=== PATIENT | female | born 1970 | race African-American/Black ===

== ENCOUNTER 2019-02-09 13:10 | Emergency (ER) | payer SELFPAY ==
--- NOTE | 2019-02-09 13:38 | RAD ---
FOUR VIEWS OF THE LEFT KNEE: DATE: 02/09/2019. COMPARISON: None. HISTORY: Knee pain. FINDINGS: No displaced fracture or evidence of dislocation is noted. There is a moderate-sized knee joint effu franco. There is enthesophyte formation at the insertion of the quadriceps tendon. IMPRESSION: Nonspecific knee joint effusion with no displaced fracture or evidence of dislocation seen. POS: OFF
[2019-02-09] MEDS ORDERED: Ketorolac Tromethamine 60 MG/2 ML VIAL ONE (14:02)
== END 2019-02-09 14:21 | disposition home or self-care (01) ==
LOC: ERS 13:10
DX: L03.115 Cellulitis of right lower limb (principal); M25.462 Effusion, left knee; G47.30 Sleep apnea, unspecified; I10 Essential (primary) hypertension; J45.909 Unspecified asthma, uncomplicated; E78.00 Pure hypercholesterolemia, unspecified; E03.9 Hypothyroidism, unspecified; F17.210 Nicotine dependence, cigarettes, uncomplicated; Z79.899 Other long term (current) drug therapy; Z79.51 Long term (current) use of inhaled steroids
CPT/HCPCS: 96372; J1885

== ENCOUNTER 2019-02-11 20:32 | Emergency (ER) | payer SELFPAY ==
[2019-02-11 22:36] LABS: #Eosinphils 0.2 thou/uL (0.0-0.7); #Lymphocytes 2.8 thou/uL (1.20-3.40); #Monocytes 0.5 thou/uL (0.11-0.59); #Neutrophils 4.3 thou/uL (1.40-6.50); %Basophils 0.5 % (0.0-1.0); %Eosinophils 2.9 % (0.0-10.0); %Monocytes 6.1 % (0.0-10.0); %Neutrophils 54.5 % (42.0-75.0); Hemoglobin 10.7 g/dL (12.0-16.0); Mean Corpuscular HGB CONC 32.6 g/dL (32.0-36.0); Mean Corpuscular Hemoglobin 26.8 pg (27.0-31.0); Mean Platelet Volume 9.8 fL (7.4-10.4); Platelet Count 243 thou/uL (130-400); RBC Distribution Width 17.4 % (11.5-14.5); White Blood Cell (WBC) Count 7.8 thou/uL (4.8-10.8)
[2019-02-11 22:53] LABS: ALT (SGPT) 14 U/L (8-55); AST (SGOT) 18 U/L (5-34); Albumin 3.9 g/dL (3.5-5.0); Alkaline Phosphatase 105 U/L (40-150); Anion Gap 12 mmol/L (10-20); BUN (Urea Nitrogen) 11 mg/dL (7.0-18.7); Bilirubin, Total Less than 0.2 mg/dL (0.2-1.2); Calc. Creatinine Clearance 0 mL/min (70-130); Calcium 9.4 mg/dL (7.8-10.44); Carbon Dioxide 25 mmol/L (22-29); Chloride 107 mmol/L (98-107); Estimated GFR-MDRD 82; Globulin 3.4 g/dL (2.4-3.5); Glucose 79 mg/dL (70-105); Potassium 3.6 mmol/L (3.5-5.1); Protein, Total 7.3 g/dL (6.0-8.3); Sodium 140 mmol/L (136-145)
== END 2019-02-12 01:44 | disposition home or self-care (01) ==
LOC: ERS 20:32
DX: L03.115 Cellulitis of right lower limb (principal); G47.00 Insomnia, unspecified; I10 Essential (primary) hypertension; J45.909 Unspecified asthma, uncomplicated; E78.00 Pure hypercholesterolemia, unspecified; E03.9 Hypothyroidism, unspecified; F17.210 Nicotine dependence, cigarettes, uncomplicated; Z79.899 Other long term (current) drug therapy
CPT/HCPCS: 36415; 80053; 83605; 84145; 85025; 99283

== ENCOUNTER 2019-06-15 14:07 | Emergency (ER) | payer SELFPAY ==
[2019-06-15] MEDS ORDERED: predniSONE 20 MG TAB ONE (15:31)
[2019-06-15 15:59] LABS: #Basophils 0.1 thou/uL (0.0-0.2); #Eosinphils 0.1 thou/uL (0.0-0.7); #Lymphocytes 2.1 thou/uL (1.20-3.40); #Monocytes 0.3 thou/uL (0.11-0.59); #Neutrophils 3.4 thou/uL (1.40-6.50); %Basophils 1.5 % (0.0-1.0); %Eosinophils 1.6 % (0.0-10.0); %Lymphocytes 34.8 % (21.0-51.0); %Monocytes 4.4 % (0.0-10.0); %Neutrophils 57.7 % (42.0-75.0); Hemoglobin 11.3 g/dL (12.0-16.0); Mean Corpuscular HGB CONC 31.6 g/dL (32.0-36.0); Mean Corpuscular Hemoglobin 26.8 pg (27.0-31.0); Mean Corpuscular Volume 84.7 fL (78.0-98.0); Mean Platelet Volume 11.9 fL (7.4-10.4); Platelet Count 194 thou/uL (130-400); RBC Distribution Width 20.8 % (11.5-14.5); Red Blood Cell (RBC) Count 4.22 mill/uL (4.20-5.40); White Blood Cell (WBC) Count 5.9 thou/uL (4.8-10.8)
--- NOTE | 2019-06-15 16:03 | RAD ---
Chest one view HISTORY: Dyspnea. COMPARISON: 01/15/2015. FINDINGS: Cardiac silhouette is magnified and upper limits of normal in size. Pulmonary vasculature a lso upper limits of normal. Patient rotated rightward. No lobar consolidation or evidence of pneumothorax. Degenerative changes of the shoulders. machinist outside leads overlie the chest. IMPRESSION: No active cardiopulmonary abnormalities are demonstrated.
[2019-06-15] MEDS ORDERED: Iopamidol-370 76% 500 ML 1 ML ONE (16:05)
[2019-06-15 16:21] LABS: CK (CPK) 2987 U/L (29-168); Lipase 18 U/L (8-78)
--- NOTE | 2019-06-15 19:19 | CT ---
CT ANGIOGRAM THORAX WITH IV CONTRAST AND 3D RECONSTRUCTIONS: HISTORY: Elevated D-dimer. The patient complains of shortness of breath and cough for one month. COMPARISON: 01/15/2015 FINDINGS: No filling defects are seen in the pulmonary arteries to suggest a pulmonary embolus. The thoracic aorta is normal in caliber and there is no evidence of an aortic dissection. The heart is mildly enlarged. There are scattered areas of atelectasis within the lungs bilaterally. This exam is obtained in the e xpiratory phase of imaging. No pleural effusion or consolidation is seen. There is no evidence of lymphadenopathy. A 2.3 cm hypodense lesion is seen in the posterior segment right hepatic lobe. This was probably also present on the prior exam but this is not well evaluated on either study due to phase of enhancement . A follow-up non-emergent CT abdomen is recommended for further evaluation. IMPRESSION: 1. Hypodense lesion, right hepatic lobe. A follow-up CT abdomen is recommended for further characteri zation. 2. No CT evidence of a pulmonary embolus. 3. Cardiomegaly and the heart is larger in size compared to the study in 2015. POS: [facility]
== END 2019-06-15 20:00 | disposition home or self-care (01) ==
LOC: ERS 14:07
DX: J45.901 Unspecified asthma with (acute) exacerbation (principal); R73.03 Prediabetes; F17.210 Nicotine dependence, cigarettes, uncomplicated; E03.9 Hypothyroidism, unspecified; I10 Essential (primary) hypertension; E78.00 Pure hypercholesterolemia, unspecified; G47.30 Sleep apnea, unspecified; Z79.899 Other long term (current) drug therapy; Z79.84 Long term (current) use of oral hypoglycemic drugs
CPT/HCPCS: 36415; 71045; 71275; 82550; 83690; 83880; 84484; 85025; 85379; 94640; 96360; 96361; J7512; J7620; Q9967

== ENCOUNTER 2019-06-19 18:32 | Emergency (ER) | payer SELFPAY | END 2019-06-19 19:35 | disposition home or self-care (01) | LOC: ERS 18:32 | DX: R60.0 Localized edema (principal); I10 Essential (primary) hypertension; J45.909 Unspecified asthma, uncomplicated; E78.00 Pure hypercholesterolemia, unspecified; E03.9 Hypothyroidism, unspecified; R73.03 Prediabetes; F17.210 Nicotine dependence, cigarettes, uncomplicated; Z79.51 Long term (current) use of inhaled steroids; Z79.84 Long term (current) use of oral hypoglycemic drugs; Z79.899 Other long term (current) drug therapy | CPT/HCPCS: 99283 ==

== ENCOUNTER 2019-06-19 23:37 | Inpatient (IN) | payer BC, SELFPAY ==
[2019-06-20 00:47] LABS: Hemoglobin 11.4 g/dL (12.0-16.0); Mean Corpuscular HGB CONC 32.8 g/dL (32.0-36.0); Mean Corpuscular Hemoglobin 27.9 pg (27.0-31.0); Mean Corpuscular Volume 84.9 fL (78.0-98.0); Mean Platelet Volume 11.5 fL (7.4-10.4); Platelet Count 191 thou/uL (130-400); RBC Distribution Width 20.7 % (11.5-14.5); Red Blood Cell (RBC) Count 4.08 mill/uL (4.20-5.40); White Blood Cell (WBC) Count 9.1 thou/uL (4.8-10.8)
[2019-06-20 01:07] LABS: Band 1 % (5-11); Hypochromia SLIGHT = 6-15 cells (100X) (0-5/hpf); Lymphocytes 26 % (21-51); MDiff Complete? YES; Monocytes 4 % (0-10); Neutrophil 69 % (42-75); Platelet Morphology Comment Appears Adequate
[2019-06-20 01:09] LABS: ALT (SGPT) 37 U/L (8-55); AST (SGOT) 124 U/L (5-34); Acetaminophen Less than 6.0 mcg/mL (10.0-30.0); Albumin 4.6 g/dL (3.5-5.0); Alcohol Less than 10 mg/dL (Less than 10); Alkaline Phosphatase 83 U/L (40-110); Anion Gap 14 mmol/L (10-20); BUN (Urea Nitrogen) 17 mg/dL (7.0-18.7); Bilirubin, Total 0.4 mg/dL (0.2-1.2); Calc. Creatinine Clearance 0 mL/min (70-130); Calcium 9.9 mg/dL (7.8-10.44); Carbon Dioxide 29 mmol/L (22-29); Chloride 99 mmol/L (98-107); Estimated GFR-MDRD 52; Globulin 3.8 g/dL (2.4-3.5); Glucose 100 mg/dL (70-105); Potassium 3.6 mmol/L (3.5-5.1); Protein, Total 8.4 g/dL (6.0-8.3); Salicylate Less than 8.0 mg/dL (15.0-30.0); Sodium 138 mmol/L (136-145)
[2019-06-20] MEDS ORDERED: Ziprasidone 20 MG VIAL ONE (04:37)
[2019-06-20 04:57] LABS: Pregnancy Test - Urine (BHCG) Negative (Negative); Pregu Control Background? CLEAR/WHITE (CLR/WHITE); Pregu Control Bar Appear? YES (CONTROL BAR); Specific Gravity 1.012 (1.002-1.036)
[2019-06-20 05:06] LABS: Amphetamine Not Detected (NotDetected); Barbiturates Screen Not Detected (NotDetected); Benzodiazepine Screen Not Detected (NotDetected); Cocaine Metabolite Screen Not Detected (NotDetected); Medtox Control Line Valid? VALID (VALID); Medtox Reader # READER 4; Methadone Not Detected (NotDetected); Methamphetamine Not Detected (NotDetected); Opiate Screen Not Detected (NotDetected); Oxycodone Screen Not Detected (NotDetected); Phencyclidine (PCP) Not Detected (NotDetected); THC/Cannabinoid Screen Not Detected (NotDetected); Tricyclic Screen Not Detected (NotDetected)
[2019-06-20] MEDS ORDERED: Lorazepam 2 MG/ML VIAL ONE (09:31)
[2019-06-20] MEDS ORDERED: Rocuronium Bromide 10 MG/ML (10ML VIAL) ONE (10:23)
[2019-06-20] MEDS ORDERED: Ketamine 50 MG/ML (10ML VIAL) ONE (10:23)
[2019-06-20] MEDS ORDERED: Propofol 1,000 MG/100 ML VIAL IV ONE ×2 (10:41→14:53)
--- NOTE | 2019-06-20 11:00 | RAD ---
XR Chest 1 View Portable History: Post intubation Comparison: Radiograph December 14, 2019 Findings: Patient is intubated with endotracheal tube tip just below the level of the clavicles. The heart size is mildly enlarged. Lungs are hypoinflated with vascular crowding. Impression: 1. Endotracheal tube tip in good position is below the level of clavicles. 2. Possible enteric tube coiled over the neck. Recommend retraction and re-advancement.
[2019-06-20 11:13] LABS: Actual Bicarbonate (HCO3a) 29.7 mEq/L (22-28); Analyzer IN Cardio ER; Base Excess (BEa) 4.9 mEq/L (-2.0 to +3.0); Calcium, Ionized 1.14 mmol/L (1.12-1.30); Hemoglobin (Hb) 11.5 g/dL (12.0-16.0); O2 Tension (PaO2) 67.2 mmHg (80.0-100.0); pH, Arterial 7.44 (7.35-7.45)
[2019-06-20 11:15] LABS: Puncture Site LRA
[2019-06-20 11:16] LABS: Bilirubin Negative (Negative); Blood, Urine Moderate (Negative); Glucose, Urine (Dipstick) Negative (Negative); Leukocyte Negative (Negative); Nitrite Negative (Negative); Protein, Urine (Dipstick) 30 mg/dL (Neg-Trace); Urobilinogen 0.2 mg/dL (Less than 2)
[2019-06-20 11:17] LABS: Clarity Slightly Cloudy (Clear)
[2019-06-20 11:24] LABS: Bacteria/HPF None Seen HPF (None Seen); RBC/HPF 0-3 HPF (0-3); Squamous Epithelial 0-3 HPF (0-3); WBC/HPF 0-3 HPF (0-3)
--- NOTE | 2019-06-20 12:09 | CT ---
Exam: Head CT without contrast HISTORY: Altered mental status COMPARISON: none FINDINGS: Hemorrhage: No intraparenchymal hemorrhage or extra-axial hematoma. Brain parenchyma: Cortical garcia-white matter differentiation is preserved. No mass effect or midline shift. Basilar cisterns are patent. Ventricular system: Ventricles and sulci are patent and symmetric. Calvarium: Intact. Sinuses and mastoid air cells: Adequate aeration. IMPRESSION: No acute intracranial process.
[2019-06-20] MEDS: Sodium Chloride 0.9% 1,000 ML IV SCH ×2 (13:30→21:21)
[2019-06-20] MEDS ORDERED: cefTRIAXone\\ROCEPHIN 1 GM in Sodium Chloride 0.9% 100 ML IVPB SCH (14:15)
[2019-06-20 14:45] VITALS: BMI 56.2
[2019-06-20] MEDS ORDERED: Levothyroxine 100 MCG SDV IVP SCH (14:45)
[2019-06-20] MEDS: Haloperidol Lactate 5 MG/ML VIAL SLOW IVP PRN (14:57)
[2019-06-20] MEDS: risperiDONE 0.25 MG TAB PO SCH ×2 (14:58→21:21)
[2019-06-20] MEDS: Heparin 5,000 UNITS/ML VIAL SC SCH ×2 (15:11→21:20)
--- NOTE | 2019-06-20 15:19 | CON ---
DATE OF CONSULTATION: HISTORY: This is a 49-year-old morbidly obese female, who was just recently discharged from this institution, presents with major confusion and hallucination. She was very agitated in the ER, thrashing around ER physician, and Dr. Sotelo intubated off to protect her airways. On admission in the ER, blood pressure 192/104, temperature 97, respirations 20, pulse 74, saturations are 95% on room air. She apparently was given Geodon in the ER. We obviously unable to get any history from the patient. She is intubated. No family was present at the bedside. Dr. Roth in the office has seen her 6 years ago for sleep apnea issues. PAST MEDICAL HISTORY: Apparently, asthma, high cholesterol, hypertension, sleep apnea, and hypothyroidism. PREVIOUS SURGERIES: Apparently, and hernia. SOCIAL HISTORY: No alcohol abuse. No drug abuse. Smokes. Lives alone. Half pack a day. RECENT DISCHARGE MEDICATIONS: 1. Synthroid 125. 2. Hydrochlorothiazide 25. 3. Flovent. 4. Lipitor 80. PHYSICAL EXAMINATION: GENERAL: She is still agitated, on Diprivan. VITAL SIGNS: Pulse 73, . CHEST: Bilateral wheezing. CARDIAC: Normal S1 and S2. No gallops. ABDOMEN: No masses. LABORATORY DATA: Otherwise shows white count of 9,000, H and H of 11 and 34, and platelet count is normal. PO2 of 67, . Lytes normal. Creatinine 1.32. TSH is elevated at 25, she is probably not taking her Synthroid. Renal function worsen compared to recently, probably prerenal. Drug screen was negative. CT brain was negative. Chest x-ray, no acute infiltrate is seen. IMPRESSION: 1. Metabolic encephalopathy. 2. Hypothyroidism. 3. Sleep apnea. 4. Asthma. 5. Azotemia. We will try and get additional information from family if possible. In the meantime, IV fluids, sedation, and empiric antibiotics. Start IV Synthroid. Neb treatment and supportive care. This is a 45-minute critical time. We will follow. Job ID: [id number]
[2019-06-20] MEDS ORDERED: Fentanyl BOLUS 250 ML IVPB PRN (15:25)
[2019-06-20] MEDS ORDERED: Lorazepam 2 MG/ML VIAL SLOW IVP PRN (15:25)
[2019-06-20] MEDS ORDERED: Propofol BOLUS 1,000 MG/100 ML VIAL IV PRN (15:25)
[2019-06-20] MEDS ORDERED: fentaNYL Citrate/PF 2,000 MCG in Sodium Chloride 0.9% 60 ML IV SCH (15:25)
[2019-06-20] MEDS ORDERED: DISCONTINUE PREVIOUS NARCOTIC PAIN MEDICATIONS AND BENZODIAZEPINES FS SCH (15:25)
[2019-06-20] MEDS ORDERED: Morphine 2 MG/ML SYRINGE SLOW IVP PRN (15:25)
--- NOTE | 2019-06-20 16:08 | HP ---
HISTORY OF PRESENT ILLNESS: Mrs. Turcios is a 49-year-old black woman. She came to this facility yesterday because of some redness involving her right leg. She was discharged and later she came back because of hallucination. She was having visual hallucination witnessed in the ER. Subsequently, she became very agitated, had to be intubated. There is no family member available at the current time. History is obtained from the nurses and also from her medical record. She is known to have a history of obstructive sleep apnea, asthma, hypertension, morbid obesity. SOCIAL HISTORY: She does have a history of cigarette smoking. No history of substance abuse. ALLERGIES: SHE DOES NOT HAVE ANY KNOWN ALLERGY. SURGICAL HISTORY: Remarkable for and also had hernia repair. FAMILY HISTORY: According to the old chart is remarkable for hypertension, diabetes, and also lupus. MEDICATIONS: Prior to admission, she was on 1. Tylenol with Codeine. 2. Lipitor. 3. Flovent inhaler. 4. Hydrochlorothiazide. 5. Levothyroxine. 6. Metformin. 7. Naproxen. 8. Omeprazole. REVIEW OF SYSTEM: As we mentioned earlier, general confusion. A detailed review of systems cannot be obtained as patient is currently intubated and there is no family member available. PHYSICAL EXAMINATION: GENERAL: At the current time, she is intubated and sedated. VITAL SIGNS: Her latest vital signs show a pulse rate of 72, blood pressure of 125/98, respiratory rate of 16, temperature of 96.1. HEENT: Her head is normocephalic and atraumatic. Both pupils are equal and reactive to light. Ears and nose are normal. She is orally intubated. NECK: Supple. There is no distention of the jugular vein. No lymphadenopathy felt. Thyroid gland not palpable. There is no carotid bruit. CHEST: Symmetrical with regular S1, S2. LUNGS: Some wheezing. ABDOMEN: Soft. Bowel sounds heard. We could not appreciate any organomegaly. EXTREMITIES: Limbs show no edema. NEUROLOGIC: Cannot be performed at this time, patient being sedated. LABORATORY DATA: Her CBC done earlier showed a WBC of 9.1, hemoglobin of 11.4, hematocrit of 34.7, MCV of 89.9, platelet of 191. ABG done earlier on room air shows a pH of 7.44, pCO2 of 45, PO2 of 67, saturation of 92. Chemistry and lytes done earlier, show a sodium of 138, potassium 3.6, chloride 99, CO2 of 29, BUN 17, creatinine 1.32, glucose 100, total bilirubin 0.4, AST 124, ALT 37, alkaline phosphatase is 83, total protein 8.4, albumin 4.6, globulin 3.8, TSH was noticed to be 25.0544. Drug screen is negative. Urinalysis show a pH of 5.5, specific gravity of 1.017, protein 30 mg/dL, moderate blood, nitrite negative, leukocyte esterase is negative, 0-3 RBCs, 0-3 WBCs, 0-[address] was reported to show no acute intracranial process. Chest x-ray done earlier was reviewed and shows possible pneumonia. ASSESSMENT AND PLAN: This is a 49-year-old black woman with history of hypertension, morbid obesity, who came in because of hallucination, confusion, and later became agitated and had to be intubated. According to the family member who was present in the ER, patient does not have any previous history of psychiatric disorder, no previous history of acute confusion. Chest x-ray in our opinion shows some infiltrate. We will start her on broad-spectrum antibiotics. Pulmonary was consulted and we plan to obtain a lumbar tap later when patient is more stable. Her TSH was noticed to be elevated. Levothyroxine was resumed. Critical Care is on board. Further evaluation and management will depend on the course of her hospitalization and her response to therapy. Job ID: [id number]
[2019-06-20] MEDS: Propofol 1,000 MG/100 ML VIAL IV PRN ×3 (17:40→22:55)
[2019-06-20] MEDS: cefTRIAXone\\ROCEPHIN 2 GM in Sodium Chloride 0.9% 100 ML IVPB SCH (18:00)
[2019-06-20] MEDS: methylPREDNISolone Sod Succ 40 MG VIAL IVP SCH (18:00)
[2019-06-21] MEDS: methylPREDNISolone Sod Succ 40 MG VIAL IVP SCH ×5 (01:10→23:59)
[2019-06-21] MEDS: Propofol 1,000 MG/100 ML VIAL IV PRN ×6 (01:27→22:50)
[2019-06-21] MEDS: Sodium Chloride 0.9% 1,000 ML IV SCH (03:50)
[2019-06-21 03:51] LABS: #Lymphocytes 1.7 thou/uL (1.20-3.40); #Monocytes 0.5 thou/uL (0.11-0.59); #Neutrophils 5.3 thou/uL (1.40-6.50); %Basophils 0.2 % (0.0-1.0); %Eosinophils 0.3 % (0.0-10.0); %Lymphocytes 22.2 % (21.0-51.0); %Monocytes 6.2 % (0.0-10.0); %Neutrophils 71.1 % (42.0-75.0); Hemoglobin 12.5 g/dL (12.0-16.0); Mean Corpuscular HGB CONC 33.2 g/dL (32.0-36.0); Mean Corpuscular Hemoglobin 27.9 pg (27.0-31.0); Mean Corpuscular Volume 84.1 fL (78.0-98.0); Mean Platelet Volume 9.8 fL (7.4-10.4); Platelet Count 121 thou/uL (130-400); RBC Distribution Width 20.7 % (11.5-14.5); Red Blood Cell (RBC) Count 4.47 mill/uL (4.20-5.40); White Blood Cell (WBC) Count 7.4 thou/uL (4.8-10.8)
[2019-06-21 04:04] LABS: Anion Gap 19 mmol/L (10-20); BUN (Urea Nitrogen) 12 mg/dL (7.0-18.7); Calc. Creatinine Clearance 152 mL/min (70-130); Carbon Dioxide 20 mmol/L (22-29); Chloride 99 mmol/L (98-107); Estimated GFR-MDRD 60; Glucose 93 mg/dL (70-105); Potassium 3.1 mmol/L (3.5-5.1); Sodium 135 mmol/L (136-145)
[2019-06-21] MEDS ORDERED: Levothyroxine 100 MCG SDV IVP SCH (06:00)
[2019-06-21] MEDS: cefTRIAXone\\ROCEPHIN 2 GM in Sodium Chloride 0.9% 100 ML IVPB SCH ×2 (06:32→17:31)
[2019-06-21 07:54] LABS: Base Excess (BEa) 1.9 mEq/L (-2.0 to +3.0); CO2 Tension 26.2 mmHg (35.0-45.0); Carboxyhemoglobin (COHb) 1.2 gm% (0.0-3.0); Potassium - ABG Lab 2.89 mmol/L (3.70-5.30)
[2019-06-21 07:55] LABS: O2 Tension (PaO2) 50.6 mmHg (80.0-100.0); Puncture Site RRA; pH, Arterial 7.56 (7.35-7.45)
--- NOTE | 2019-06-21 08:36 | RAD ---
XR Chest 1 View Portable History: Ventilated patient Comparison: Radiograph prior day Findings: Endotracheal tube tip at level of clavicles. Enteric tube tip below diaphragm although not well seen. Heart size is enlarged. The right upper lobe consolidation. Small effusions. Mild pulmonary venous congestion. Impression: New consolidation right upper lobe may reflect aspiration or developing infection.
[2019-06-21] MEDS: Heparin 5,000 UNITS/ML VIAL SC SCH (08:38)
[2019-06-21] MEDS: risperiDONE 0.25 MG TAB PO SCH ×2 (08:38→21:33)
[2019-06-21] MEDS: Haloperidol Lactate 5 MG/ML VIAL SLOW IVP PRN ×4 (08:47→22:03)
[2019-06-21 08:50] LABS: Reference Lab Name LABCORP
[2019-06-21 08:51] LABS: Ref Lab Test Ordered SYNT CANNABINOIDS
--- NOTE | 2019-06-21 08:58 | PRG ---
DATE OF SERVICE: 06/21/2019 SUBJECTIVE: Lucia Turcios is a 49-year-old, morbidly obese female, who is intubated, sedated. We are in the process of holding her sedation to see what she is doing neurologically. OBJECTIVE: VITAL SIGNS: Blood pressure 157/113, pulse 80, respiratory rate 18, afebrile, saturations 96%. CHEST: Diffuse wheezing. CARDIAC: Normal S1 and S2. No gallops. ABDOMEN: No masses. LABORATORY DATA: White count 7000, hemoglobin and hematocrit are 12 and 37, and platelet count is normal. PO2 is 50, pCO2 lytes are normal. IMPRESSION: Respiratory failure, chronic obstructive pulmonary disease, asthma, encephalopathy. PLAN: I am concerned about the hypoxemia. She is still on broad-spectrum antibiotics, Haldol, steroids, neb treatment. Cultures are so far negative. Plan is to hold sedation, otherwise continue antibiotics, neb treatments, and start nutrition. She is not weanable at this stage. We will follow. One-half hour critical are time. Job ID: [id number]
[2019-06-21] MEDS: niCARdipine 25 MG in Sodium Chloride 0.9% 250 ML 240 ML IVPB SCH (10:37)
[2019-06-21] MEDS ORDERED: Magnesium 2 GM/50 ML 2 GM in Premix Bag 1 BAG IVPB SCH (11:00)
[2019-06-21] MEDS ORDERED: risperiDONE 0.25 MG TAB PO SCH (11:00)
--- NOTE | 2019-06-21 12:13 | PDOC.HOSPP ---
- Subjective Encounter Date: 06/21/19 Encounter Time: 12:00 Subjective: Intubated, .. - Objective Vital Signs & Weight: Vital Signs (12 hours) Temp Pulse Resp BP Pulse Ox 06/21/19 12:00 98.1 F 15 06/21/19 10:42 71 181/124 H 06/21/19 10:41 75 15 97 06/21/19 10:00 16 06/21/19 08:00 98.3 F 31 H 100 06/21/19 07:17 74 128/98 H 06/21/19 07:06 75 16 97 06/21/19 04:00 98.3 F 06/21/19 02:57 78 06/21/19 01:01 95 Weight Admit Weight 358 lb 11.073 oz Weight 358 lb 11.073 oz Most Recent Monitor Data Heart Rate from ECG 81 NIBP 147/97 NIBP BP-Mean 113 Respiration from ECG 9 SpO2 99 I&O: 06/20/19 06/21/19 06/22/19 06:59 06:59 06:59 Intake Total 3237 90 Output Total 1750 622 Balance 1487 -532 Result Diagrams: 06/21/19 03:34 06/21/19 03:34 Hospitalist ROS - Medication Medications: Active Medications Generic Name Dose Route Start Last Admin Trade Name Freq PRN Reason Stop Dose Admin Albuterol/Ipratropium 3 ml 06/21/19 10:30 06/21/19 10:41 Duoneb NEB 3 ml [id number] CHUN Administration Haloperidol Lactate 5 mg 06/20/19 14:16 06/21/19 08:47 Haldol SLOW IVP 5 mg Q4H PRN Administration Agitation Levofloxacin 750 mg/ Device 150 mls @ 100 mls/hr 06/20/19 15:00 06/20/19 15: 05 IVPB 150 mls Q24HR CHUN Administration Ceftriaxone Sodium 2 gm/ 100 mls @ 0 mls/hr 06/20/19 18:00 06/21/19 06:32 Sodium Chloride IVPB 100 mls 0600,1800 CHUN Administration Nicardipine HCl 25 mg/ Sodium 250 mls @ 0 mls/hr 06/21/19 10:30 06/21/19 10: 37 Chloride IVPB 250 mls INF CHUN Administration Protocol Titrate Magnesium Sulfate 2 gm/ Device 50 mls @ 50 mls/hr 06/21/19 11:00 06/21/19 11: 20 IVPB 06/21/19 13:00 50 mls NOW CHUN Administration Methylprednisolone Sodium Succinate 40 mg 06/20/19 18:00 06/21/19 11:21 Solu-Medrol IVP 40 mg Q6HR CHUN Administration Propofol 1,000 mg 06/20/19 15:25 06/21/19 03:49 Diprivan IV 07/20/19 15:25 1,000 mg INF PRN Administration TO ACHIEVE GOAL RASS Protocol Risperidone 0.25 mg 06/21/19 11:00 06/21/19 11:22 Risperidone PO 06/21/19 13:00 0.25 mg NOW CHUN Administration - Exam Neck: no JVD Heart: RRR Respiratory: CTAB Gastrointestinal: soft Extremities: no edema Neurological: no weakness (Moves all limbs..) Hosp A/P (1) Respiratory failure Code(s): J96.90 - RESPIRATORY FAILURE, UNSP, UNSP W HYPOXIA OR HYPERCAPNIA Status: Acute Plan: With new infiltrate on chest x-ray.. ?aspiration Vs bacterial pneumonia. (2) Asthma Code(s): J45.909 - UNSPECIFIED ASTHMA, UNCOMPLICATED Status: Acute (3) Hypertension Code(s): I10 - ESSENTIAL (PRIMARY) HYPERTENSION Status: Acute Plan: BP was noticed to be elevated, diastolic>110 ?due to decreased sedation. Started on cardene drip. (4) Hypothyroidism Code(s): E03.9 - HYPOTHYROIDISM, UNSPECIFIED Status: Acute Plan: supplemented. (5) Morbid obesity with BMI of 50.0-59.9, adult Code(s): E66.01 - MORBID (SEVERE) OBESITY DUE TO EXCESS CALORIES; Z68.43 - BODY MASS INDEX (BMI) 50.0-59.9, ADULT Status: Acute (6) Obstructive sleep apnea Code(s): G47.33 - OBSTRUCTIVE SLEEP APNEA (ADULT) (PEDIATRIC) Status: Acute (7) Confusion state Code(s): F44.89 - OTHER DISSOCIATIVE AND CONVERSION DISORDERS Status: Acute Plan: Prior to admission.. Drug screen negative. Check for synthetic marijuana.. ? infectious process - Plan Continue broad spectrum antibiotics... On cardene drip. f/u cultures. f/u with pulmonary. May need LP. f/u k2 levels.
--- NOTE | 2019-06-21 12:40 | HP ---
Job ID: [id number]
[2019-06-21] MEDS ORDERED: FLU VACC QS2019-20(6MOS UP)/PF 60 MCG/0.5 ML SYRINGE IM ONE (16:15)
[2019-06-21] MEDS: Enoxaparin Sodium 40 MG/0.4 ML SYRINGE SC SCH (21:32)
[2019-06-22] MEDS: Propofol 1,000 MG/100 ML VIAL IV PRN ×6 (02:45→21:12)
[2019-06-22] MEDS: Haloperidol Lactate 5 MG/ML VIAL SLOW IVP PRN ×3 (03:30→21:11)
[2019-06-22 04:07] LABS: #Lymphocytes 0.6 thou/uL (1.20-3.40); #Monocytes 0.3 thou/uL (0.11-0.59); #Neutrophils 12.4 thou/uL (1.40-6.50); %Eosinophils 0.1 % (0.0-10.0); %Lymphocytes 4.8 % (21.0-51.0); %Monocytes 2.4 % (0.0-10.0); %Neutrophils 92.7 % (42.0-75.0); Mean Corpuscular HGB CONC 32.9 g/dL (32.0-36.0); Mean Corpuscular Hemoglobin 27.9 pg (27.0-31.0); Mean Corpuscular Volume 84.8 fL (78.0-98.0); Mean Platelet Volume 9.6 fL (7.4-10.4); Platelet Count 157 thou/uL (130-400); RBC Distribution Width 20.8 % (11.5-14.5); Red Blood Cell (RBC) Count 4.31 mill/uL (4.20-5.40); White Blood Cell (WBC) Count 13.4 thou/uL (4.8-10.8)
[2019-06-22 04:13] LABS: Anion Gap 13 mmol/L (10-20); BUN (Urea Nitrogen) 12 mg/dL (7.0-18.7); Calc. Creatinine Clearance 136 mL/min (70-130); Calcium 8.8 mg/dL (7.8-10.44); Carbon Dioxide 26 mmol/L (22-29); Chloride 100 mmol/L (98-107); Estimated GFR-MDRD 53; Glucose 115 mg/dL (70-105); Potassium 3.1 mmol/L (3.5-5.1); Sodium 136 mmol/L (136-145)
[2019-06-22] MEDS: cefTRIAXone\\ROCEPHIN 2 GM in Sodium Chloride 0.9% 100 ML IVPB SCH ×2 (05:35→17:40)
[2019-06-22] MEDS: methylPREDNISolone Sod Succ 40 MG VIAL IVP SCH ×3 (05:37→17:52)
[2019-06-22] MEDS: Levothyroxine Sodium 125 MCG TAB PO SCH (05:37)
[2019-06-22 07:31] LABS: Actual Bicarbonate (HCO3a) 26.3 mEq/L (22-28); Base Excess (BEa) 2.1 mEq/L (-2.0 to +3.0); CO2 Tension 39.6 mmHg (35.0-45.0); Calcium, Ionized 1.14 mmol/L (1.12-1.30); Carboxyhemoglobin (COHb) 1.1 gm% (0.0-3.0); Hemoglobin (Hb) 11.7 g/dL (12.0-16.0); O2 Tension (PaO2) 70.4 mmHg (80.0-100.0); pH, Arterial 7.44 (7.35-7.45)
[2019-06-22 07:32] LABS: Puncture Site LR
[2019-06-22] MEDS: Amlodipine 10 MG TAB PO SCH (08:12)
[2019-06-22] MEDS: risperiDONE 0.25 MG TAB PO SCH ×2 (08:13→21:11)
--- NOTE | 2019-06-22 08:35 | RAD ---
PORTABLE SUPINE FRONTAL CHEST RADIOGRAPH: DATE: 06/22/2019. COMPARISON: 06/21/2019. HISTORY: Ventilated patient. FINDINGS: Stable endotracheal tube and nasogastric tube. Stable prominence of the cardiac silhouette with pulm onary vascular congestion. No lobar consolidation or alveolar edema. Mild increased density in the medial left base suggests volume loss or infiltrate. IMPRESSION: No significant interval change. POS: [facility]
--- NOTE | 2019-06-22 09:07 | PDOC.HOSPP ---
- Subjective Encounter Date: 06/22/19 Encounter Time: 09:05 Subjective: intubated, non-responsive - Objective Vital Signs & Weight: Vital Signs (12 hours) Temp Pulse Resp BP 06/22/19 08:12 73 129/103 H 06/22/19 07:56 73 160/116 H 06/22/19 04:00 98.4 F 06/22/19 03:50 76 142/99 H 06/22/19 00:59 76 06/22/19 00:00 98.2 F 06/21/19 22:12 89 166/128 H 06/21/19 22:00 12 Weight Admit Weight 358 lb 11.073 oz Weight 358 lb 11.073 oz Most Recent Monitor Data Heart Rate from ECG 72 NIBP 129/103 NIBP BP-Mean 111 Respiration from ECG 9 SpO2 98 I&O: 06/21/19 06/22/19 06/23/19 06:59 06:59 06:59 Intake Total 3237 2253 Output Total 1750 1877 Balance 1487 376 Result Diagrams: 06/22/19 03:47 06/22/19 03:47 Hospitalist ROS - Medication Medications: Active Medications Generic Name Dose Route Start Last Admin Trade Name Freq PRN Reason Stop Dose Admin Albuterol/Ipratropium 3 ml 06/21/19 10:30 06/22/19 07:54 Duoneb NEB 3 ml [id number] CHUN Administration Amlodipine Besylate 10 mg 06/22/19 09:00 06/22/19 08:12 Norvasc PO 10 mg DAILY CHUN Administration Enoxaparin Sodium 40 mg 06/21/19 21:00 06/21/19 21:32 Lovenox SC 40 mg 2100 CHUN Administration Haloperidol Lactate 5 mg 06/20/19 14:16 06/22/19 03:30 Haldol SLOW IVP 5 mg Q4H PRN Administration Agitation Levofloxacin 750 mg/ Device 150 mls @ 100 mls/hr 06/20/19 15:00 06/21/19 15: 07 IVPB 150 mls Q24HR CHUN Administration Ceftriaxone Sodium 2 gm/ 100 mls @ 0 mls/hr 06/20/19 18:00 06/22/19 05:35 Sodium Chloride IVPB 100 mls 0600,1800 CHUN Administration Vancomycin HCl 2 gm/ Sodium 500 mls @ 200 mls/hr 06/21/19 16:00 06/21/19 16: 14 Chloride IVPB 500 mls 1600 CHUN Administration Nicardipine HCl 25 mg/ Sodium 250 mls @ 0 mls/hr 06/21/19 10:30 06/21/19 10: 37 Chloride IVPB 250 mls INF CHUN Administration Protocol Titrate Levothyroxine Sodium 125 mcg 06/22/19 06:00 06/22/19 05:37 Synthroid PO 125 mcg 0600 CHUN Administration Methylprednisolone Sodium Succinate 40 mg 06/20/19 18:00 06/22/19 05:37 Solu-Medrol IVP 40 mg Q6HR CHUN Administration Propofol 1,000 mg 06/20/19 15:25 06/22/19 06:27 Diprivan IV 07/20/19 15:25 1,000 mg INF PRN Administration TO ACHIEVE GOAL RASS Protocol Risperidone 0.25 mg 06/21/19 21:00 06/22/19 08:13 Risperidone PO 0.25 mg BID CHUN Administration - Exam Neck: no JVD Neck - other findings: stiff Heart: RRR, no murmur Respiratory: CTAB Gastrointestinal: soft, non-tender, normal bowel sounds Extremities: 1+ LE edema Hosp A/P (1) Encephalopathy acute Code(s): G93.40 - ENCEPHALOPATHY, UNSPECIFIED Status: Acute (2) Acute respiratory failure with hypoxia Code(s): J96.01 - ACUTE RESPIRATORY FAILURE WITH HYPOXIA Status: Acute (3) Hypertensive urgency Code(s): I16.0 - HYPERTENSIVE URGENCY Status: Acute (4) Meningitis Code(s): G03.9 - MENINGITIS, UNSPECIFIED Status: Acute (5) Hyperlipidemia Code(s): E78.5 - HYPERLIPIDEMIA, UNSPECIFIED Status: Chronic Qualifiers: Hyperlipidemia type: unspecified Qualified Code(s): E78.5 - Hyperlipidemia , unspecified (6) Morbid obesity with BMI of 50.0-59.9, adult Code(s): E66.01 - MORBID (SEVERE) OBESITY DUE TO EXCESS CALORIES; Z68.43 - BODY MASS INDEX (BMI) 50.0-59.9, ADULT Status: Chronic (7) Obstructive sleep apnea Code(s): G47.33 - OBSTRUCTIVE SLEEP APNEA (ADULT) (PEDIATRIC) Status: Chronic - Plan cadene iv for BP control LP for cells, C&S pending vent dependent cont iv antibx
[2019-06-22] MEDS: cloNIDine 0.1 MG TAB PO PRN (09:33)
[2019-06-22] MEDS: niCARdipine 25 MG in Sodium Chloride 0.9% 250 ML 240 ML IVPB SCH ×2 (11:50→17:40)
[2019-06-22 15:44] LABS: Vancomycin, Trough 9.6 ug/mL
[2019-06-22] MEDS: Vancomycin 1.5 GRAM/300 ML BAG 1.5 GM in Premix Bag 1 BAG IVPB SCH (16:12)
[2019-06-22] MEDS ORDERED: Potassium Chloride 40 MEQ in Sodium Chloride 0.9% 250 ML 250 ML IVPB SCH (16:45)
[2019-06-22] MEDS: Pantoprazole 40 MG VIAL IVP SCH (21:11)
[2019-06-22] MEDS: Enoxaparin Sodium 40 MG/0.4 ML SYRINGE SC SCH (21:11)
[2019-06-23] MEDS: Propofol 1,000 MG/100 ML VIAL IV PRN ×8 (00:20→22:03)
[2019-06-23] MEDS: methylPREDNISolone Sod Succ 40 MG VIAL IVP SCH ×4 (00:33→17:18)
[2019-06-23] MEDS: Haloperidol Lactate 5 MG/ML VIAL SLOW IVP PRN ×4 (03:22→21:10)
[2019-06-23 04:25] LABS: #Basophils 0.1 thou/uL (0.0-0.2); #Lymphocytes 0.7 thou/uL (1.20-3.40); #Monocytes 0.4 thou/uL (0.11-0.59); #Neutrophils 10.7 thou/uL (1.40-6.50); %Basophils 0.4 % (0.0-1.0); %Eosinophils 0.1 % (0.0-10.0); %Lymphocytes 5.8 % (21.0-51.0); %Monocytes 3.4 % (0.0-10.0); %Neutrophils 90.2 % (42.0-75.0); Hemoglobin 12.1 g/dL (12.0-16.0); Mean Corpuscular HGB CONC 31.5 g/dL (32.0-36.0); Mean Corpuscular Hemoglobin 27.4 pg (27.0-31.0); Mean Platelet Volume 10.8 fL (7.4-10.4); Platelet Count 162 thou/uL (130-400); RBC Distribution Width 21.6 % (11.5-14.5); Red Blood Cell (RBC) Count 4.43 mill/uL (4.20-5.40); White Blood Cell (WBC) Count 11.9 thou/uL (4.8-10.8)
[2019-06-23] MEDS: Vancomycin 1.5 GRAM/300 ML BAG 1.5 GM in Premix Bag 1 BAG IVPB SCH ×2 (04:25→15:16)
[2019-06-23 04:38] LABS: Anion Gap 16 mmol/L (10-20); BUN (Urea Nitrogen) 12 mg/dL (7.0-18.7); Calc. Creatinine Clearance 175 mL/min (70-130); Calcium 8.9 mg/dL (7.8-10.44); Carbon Dioxide 23 mmol/L (22-29); Chloride 103 mmol/L (98-107); Estimated GFR-MDRD 71; Glucose 125 mg/dL (70-105); Potassium 3.7 mmol/L (3.5-5.1); Sodium 138 mmol/L (136-145)
[2019-06-23] MEDS: Levothyroxine Sodium 125 MCG TAB PO SCH (05:51)
[2019-06-23] MEDS: cefTRIAXone\\ROCEPHIN 2 GM in Sodium Chloride 0.9% 100 ML IVPB SCH ×2 (05:51→17:17)
[2019-06-23] MEDS: niCARdipine 25 MG in Sodium Chloride 0.9% 250 ML 240 ML IVPB SCH (07:08)
[2019-06-23 07:21] LABS: Actual Bicarbonate (HCO3a) 29.6 mEq/L (22-28); Base Excess (BEa) 5.3 mEq/L (-2.0 to +3.0); CO2 Tension 42.6 mmHg (35.0-45.0); Calcium, Ionized 1.16 mmol/L (1.12-1.30); Carboxyhemoglobin (COHb) 0.9 gm% (0.0-3.0); Hemoglobin (Hb) 11.7 g/dL (12.0-16.0); O2 Tension (PaO2) 60.9 mmHg (80.0-100.0); Potassium - ABG Lab 3.19 mmol/L (3.70-5.30); pH, Arterial 7.46 (7.35-7.45)
[2019-06-23 07:26] LABS: Puncture Site RR
--- NOTE | 2019-06-23 07:40 | RAD ---
EXAM: Single view of the chest HISTORY: Ventilated patient with respiratory failure COMPARISON: 06/22/2019 FINDINGS: Single view of the chest shows an enlarged but stable cardiomediastinal silhouette. The li louise and tubes are unchanged in position. There is no evidence of consolidation, mass, or pleural effusion. The bones are unremarkable. IMPRESSION: Stable exam
[2019-06-23] MEDS: Amlodipine 10 MG TAB PO SCH (08:28)
--- NOTE | 2019-06-23 08:28 | PDOC.HOSPP ---
- Subjective Encounter Date: 06/23/19 Encounter Time: 08:23 - Objective Vital Signs & Weight: Vital Signs (12 hours) Temp Pulse BP 06/23/19 07:01 69 134/99 H 06/23/19 04:00 98.7 F 06/23/19 02:09 74 134/93 H 06/22/19 21:50 71 125/91 H Weight Admit Weight 358 lb 11.073 oz Weight 358 lb 11.073 oz Most Recent Monitor Data Heart Rate from ECG 71 NIBP 140/97 NIBP BP-Mean 111 Respiration from ECG 12 SpO2 99 I&O: 06/22/19 06/23/19 06/24/19 06:59 06:59 06:59 Intake Total 2253 2759 Output Total 0091 2125 75 Balance 376 634 -75 Result Diagrams: 06/23/19 03:29 06/23/19 03:29 Radiology Reviewed by me: Yes (cxr- stable exam, no infiltrate,etc) Hospitalist ROS - Medication Medications: Active Medications Generic Name Dose Route Start Last Admin Trade Name Freq PRN Reason Stop Dose Admin Albuterol/Ipratropium 3 ml 06/21/19 10:30 06/23/19 07:01 Duoneb NEB 3 ml [id number] CHUN Administration Amlodipine Besylate 10 mg 06/22/19 09:00 06/22/19 08:12 Norvasc PO 10 mg DAILY CHUN Administration Clonidine 0.1 mg 06/21/19 10:55 06/22/19 09:33 Catapres PO 0.1 mg Q4H PRN Administration Hypertension Enoxaparin Sodium 40 mg 06/21/19 21:00 06/22/19 21:11 Lovenox SC 40 mg 2100 CHUN Administration Haloperidol Lactate 5 mg 06/20/19 14:16 06/23/19 03:22 Haldol SLOW IVP 5 mg Q4H PRN Administration Agitation Levofloxacin 750 mg/ Device 150 mls @ 100 mls/hr 06/20/19 15:00 06/22/19 15: 19 IVPB 150 mls Q24HR CHUN Administration Ceftriaxone Sodium 2 gm/ 100 mls @ 0 mls/hr 06/20/19 18:00 06/23/19 05:51 Sodium Chloride IVPB 100 mls 0600,1800 CHUN Administration Nicardipine HCl 25 mg/ Sodium 250 mls @ 0 mls/hr 06/21/19 10:30 06/23/19 07: 08 Chloride IVPB 250 mls INF CHUN Administration Protocol Titrate Vancomycin HCl 1.5 gm/ Device 300 mls @ 200 mls/hr 06/22/19 16:00 06/23/19 04 :25 IVPB 300 mls 0400,1600 CHUN Administration Levothyroxine Sodium 125 mcg 06/22/19 06:00 06/23/19 05:51 Synthroid PO 125 mcg 0600 CHUN Administration Methylprednisolone Sodium Succinate 40 mg 06/20/19 18:00 06/23/19 05:52 Solu-Medrol IVP 40 mg Q6HR CHUN Administration Pantoprazole Sodium 40 mg 06/22/19 21:00 06/22/19 21:11 Protonix IVP 40 mg 2100 CHUN Administration Propofol 1,000 mg 06/20/19 15:25 06/23/19 06:00 Diprivan IV 07/20/19 15:25 1,000 mg INF PRN Administration TO ACHIEVE GOAL RASS Protocol Risperidone 0.25 mg 06/21/19 21:00 06/22/19 21:11 Risperidone PO 0.25 mg BID CHUN Administration - Exam Neck: no JVD Heart: RRR, no murmur Respiratory: CTAB Gastrointestinal: soft, normal bowel sounds Extremities: 1+ LE edema Hosp A/P (1) Encephalopathy acute Code(s): G93.40 - ENCEPHALOPATHY, UNSPECIFIED Status: Acute (2) Acute respiratory failure with hypoxia Code(s): J96.01 - ACUTE RESPIRATORY FAILURE WITH HYPOXIA Status: Acute (3) Hypertensive urgency Code(s): I16.0 - HYPERTENSIVE URGENCY Status: Acute (4) Meningitis Code(s): G03.9 - MENINGITIS, UNSPECIFIED Status: Acute (5) Hyperlipidemia Code(s): E78.5 - HYPERLIPIDEMIA, UNSPECIFIED Status: Chronic Qualifiers: Hyperlipidemia type: unspecified Qualified Code(s): E78.5 - Hyperlipidemia , unspecified (6) Morbid obesity with BMI of 50.0-59.9, adult Code(s): E66.01 - MORBID (SEVERE) OBESITY DUE TO EXCESS CALORIES; Z68.43 - BODY MASS INDEX (BMI) 50.0-59.9, ADULT Status: Chronic (7) Obstructive sleep apnea Code(s): G47.33 - OBSTRUCTIVE SLEEP APNEA (ADULT) (PEDIATRIC) Status: Chronic - Plan cadene iv for BP control LP for cells, C&S pending vent dependent cont iv antibx discuss with cultured marble products maker
[2019-06-23] MEDS: risperiDONE 0.25 MG TAB PO SCH ×2 (08:29→21:10)
--- NOTE | 2019-06-23 10:32 | PQF ---
DATE: 06-23-19 ATTN: DR. PEGGY GUEVARA Please exercise your independent, professional judgment in responding to the clarification form. Clinical indicators are provided on the bottom of this form for your review Please check appropriate box(s): [ x ] Acute Renal Failure (ARF) / Acute Kidney Injury (EVA) [ ] Insignificant Lab Values [ ] Other diagnosis [ ] Unable to determine In addition, please specify: Present on Admission (POA): [x ] Yes [ ] No [ ] Unable to determine National Kidney Foundation Guidelines for CKD Staging Stage I Kidney damage with normal or increased GFR GFR > 90 Stage II Kidney damage with mildly decreased GFR GFR 60-89 Stage III Kidney damage with moderately decreased GFR GFR 30 -59 Stage IV Kidney damage with severely decreased GFR GFR 16-29 Stage V Kidney failure GFR<15 ESRD End Stage Renal Disease On dialysis Acute Renal Failure/Acute Kidney Failure defined as: Increases in SCr by (>) 0.3 mg/dl within 48 hours OR- Increases in SCr by (>) 1.5 times baseline, known or presumed to have occurred within the prior 7 days OR- Urine volume < 0.5 ml/kg/hour for 6 hours (KDIGO supplement 2012 for RIFLE/ELÍAS criteria) For continuity of documentation, please document condition throughout progress notes and discharge summary. Thank You. CLINICAL INDICATORS - SIGNS / SYMPTOMS / LABS / RESULTS AND LOCATION IN MR: CONSULT NOTE DR. MORALES 06-20-19: RENAL FUNCTION WORSEN COMPARED TO RECENTLY, PROBABLY PRERENAL, AZOTEMIA GFR: 06-20-19: 52 06-21-19: 60 06-22-19: 53 06-23-19: 71 CREATININE: 06-20-19: 1.32 06-21-19: 1.16 06-22-19: 1.30 06-23-19: 1.01 BUN: 06-20-19: 17 06-21-19: 12 06-22-19: 12 06-23-19: 12 RISK FACTORS / RESULTS AND LOCATION IN MR: ER NOTES 06-20-19: HOME MEDS: HYDROCHLOROTHIAZIDE, METFORMIN, ZITHROMAX, MEDROL [facility] TREATMENTS / RESULTS AND LOCATION IN MR: SERIES OF LABS/MONITORING 06-20-19 TO 06-23-19 MAR: 06-22-19: IVF (This form is maintained as a part of the permanent medical record) 2014 [employer], [employer]. All Rights Reserved SHAN [email or web address] Office: [phone] [facility]
[2019-06-23 16:59] LABS: Vancomycin, Trough 14.7 ug/mL
[2019-06-23] MEDS: Enoxaparin Sodium 40 MG/0.4 ML SYRINGE SC SCH (21:10)
[2019-06-23] MEDS: Pantoprazole 40 MG VIAL IVP SCH (21:10)
--- NOTE | 2019-06-23 23:39 | PRG ---
DATE OF SERVICE: 06/23/2019 SUBJECTIVE: Ms. Turcios' events have been reviewed. She is mechanically ventilated. She apparently was intubated for combative behavior. She is actually more cooperative. She has been receiving some intermittent Haldol. Drug screen was negative. Apparently, there has never been a history of drug use. There are no old drug screens. I feel it is unlikely that her combative behavior or confusion was related to narcotics, but there is no telling at this point in time. Her hemodynamics have been stable. OBJECTIVE: VITAL SIGNS: Blood pressure 129/91, heart rate is in 50s, respiratory rate is in the teens. She gets pretty combative quickly if she is awaken, so we started on a Precedex drip. LUNGS: Clear. HEART: Regular rhythm. ABDOMEN: Soft. LABORATORY DATA: Electrolytes are normal today. White count is 11.9, hemoglobin 12.1, platelets 162. Blood gas today shows pH 746, CO2 of 42, PO2 of 60. IMPRESSION: Hopefully tomorrow, we can just turn off her sedation and quickly extubate her. We can manage her with antipsychotic drugs if she is still psychotic. There has been no medical abnormality identified as a cause of her confusion. She did not have a lumbar puncture in the emergency department. Probably, clinically does not need one. We will keep this in mind, however. I will continue to follow the other physicians caring for her. CRITICAL CARE TIME: 30 minutes. Job ID: [id number]
[2019-06-24] MEDS: methylPREDNISolone Sod Succ 40 MG VIAL IVP SCH ×6 (00:19→20:03)
[2019-06-24] MEDS: Propofol 1,000 MG/100 ML VIAL IV PRN ×3 (01:16→09:18)
[2019-06-24] MEDS: Haloperidol Lactate 5 MG/ML VIAL SLOW IVP PRN (01:51)
[2019-06-24] MEDS: Vancomycin 1.5 GRAM/300 ML BAG 1.5 GM in Premix Bag 1 BAG IVPB SCH ×2 (04:01→15:47)
[2019-06-24 04:16] LABS: #Lymphocytes 0.6 thou/uL (1.20-3.40); #Monocytes 0.2 thou/uL (0.11-0.59); #Neutrophils 8.9 thou/uL (1.40-6.50); %Eosinophils 0.1 % (0.0-10.0); %Lymphocytes 6.1 % (21.0-51.0); %Monocytes 2.3 % (0.0-10.0); %Neutrophils 91.5 % (42.0-75.0); Hemoglobin 11.3 g/dL (12.0-16.0); Mean Corpuscular HGB CONC 30.9 g/dL (32.0-36.0); Mean Corpuscular Hemoglobin 26.7 pg (27.0-31.0); Mean Corpuscular Volume 86.4 fL (78.0-98.0); Platelet Count 153 thou/uL (130-400); RBC Distribution Width 21.1 % (11.5-14.5); Red Blood Cell (RBC) Count 4.22 mill/uL (4.20-5.40); White Blood Cell (WBC) Count 9.7 thou/uL (4.8-10.8)
[2019-06-24 04:28] LABS: Anion Gap 14 mmol/L (10-20); BUN (Urea Nitrogen) 13 mg/dL (7.0-18.7); Calc. Creatinine Clearance 184 mL/min (70-130); Calcium 9.1 mg/dL (7.8-10.44); Carbon Dioxide 24 mmol/L (22-29); Chloride 106 mmol/L (98-107); Estimated GFR-MDRD 75; Glucose 148 mg/dL (70-105); Sodium 141 mmol/L (136-145)
[2019-06-24 04:32] LABS: Potassium 2.8 mmol/L (3.5-5.1)
[2019-06-24] MEDS: cefTRIAXone\\ROCEPHIN 2 GM in Sodium Chloride 0.9% 100 ML IVPB SCH ×2 (05:47→17:16)
[2019-06-24] MEDS: Levothyroxine Sodium 125 MCG TAB PO SCH (05:47)
[2019-06-24] MEDS ORDERED: Haloperidol Lactate 5 MG/ML VIAL IM SCH (06:00)
[2019-06-24] MEDS ORDERED: Potassium Phosphate 9 MMOL in Sodium Chloride 0.9% 100 ML IVPB PRN (06:01)
[2019-06-24] MEDS ORDERED: Magnesium 2 GM/50 ML 2 GM in Premix Bag 1 BAG IVPB PRN (06:01)
[2019-06-24] MEDS ORDERED: Potassium Phosphate 12 MMOL in Sodium Chloride 0.9% 250 ML 250 ML IV PRN (06:01)
[2019-06-24] MEDS ORDERED: Potassium Phosphate 15 MMOL in Sodium Chloride 0.9% 250 ML 250 ML IV PRN (06:01)
[2019-06-24] MEDS ORDERED: Magnesium Oxide 400 MG TAB PO PRN ×2 (06:01)
[2019-06-24] MEDS ORDERED: Potassium Chloride 40 MEQ in Sodium Chloride 0.9% 250 ML 250 ML IVPB PRN (06:01)
[2019-06-24] MEDS ORDERED: Potassium Chloride 40 MEQ in Premix Bag 1 BAG IVPB PRN (06:01)
[2019-06-24] MEDS ORDERED: PHOS-NAK 1 PKT PACK PO PRN ×2 (06:01)
[2019-06-24] MEDS ORDERED: Potassium Chloride 20 MEQ TAB PO PRN (06:01)
[2019-06-24] MEDS ORDERED: CCU ELECTROLYTE REPLACEMENT PROTOCOL FS PRN (06:01)
[2019-06-24] MEDS: Potassium Chloride 40 MEQ in Sodium Chloride 0.9% 250 ML 250 ML IVPB PRN (07:21)
[2019-06-24 08:25] LABS: Actual Bicarbonate (HCO3a) 27.9 mEq/L (22-28); Base Excess (BEa) 4.6 mEq/L (-2.0 to +3.0); CO2 Tension 36.9 mmHg (35.0-45.0); Calcium, Ionized 1.18 mmol/L (1.12-1.30); Carboxyhemoglobin (COHb) 0.8 gm% (0.0-3.0); Hemoglobin (Hb) 11.4 g/dL (12.0-16.0); Potassium - ABG Lab 2.98 mmol/L (3.70-5.30)
[2019-06-24 08:29] LABS: ALV-art Gradient 186.375 (0-20); O2 Tension (PaO2) 52.7 mmHg (80.0-100.0)
--- NOTE | 2019-06-24 08:31 | PDOC.HOSPP ---
- Subjective Encounter Date: 06/24/19 Encounter Time: 08:28 Subjective: on vent, sedated - Objective Vital Signs & Weight: Vital Signs (12 hours) Temp Pulse Resp BP 06/24/19 07:44 47 L 129/94 H 06/24/19 06:00 12 06/24/19 04:00 97.1 F L 12 06/24/19 02:20 48 L 131/99 H 06/24/19 02:00 12 06/24/19 00:00 97.3 F L 06/23/19 22:24 48 L 127/96 H 06/23/19 22:00 12 Weight Admit Weight 358 lb 11.073 oz Weight 358 lb 11.073 oz Most Recent Monitor Data Heart Rate from ECG 47 NIBP 129/94 NIBP BP-Mean 105 Respiration from ECG 12 SpO2 96 I&O: 06/23/19 06/24/19 06/25/19 06:59 06:59 06:59 Intake Total 2759 2222 Output Total 6722 2238 60 Balance 634 -673 -60 Result Diagrams: 06/24/19 03:35 06/24/19 03:35 Hospitalist ROS - Medication Medications: Active Medications Generic Name Dose Route Start Last Admin Trade Name Freq PRN Reason Stop Dose Admin Albuterol/Ipratropium 3 ml 06/21/19 10:30 06/24/19 07:43 Duoneb NEB 3 ml [id number] CHUN Administration Amlodipine Besylate 10 mg 06/22/19 09:00 06/23/19 08:28 Norvasc PO 10 mg DAILY CHUN Administration Clonidine 0.1 mg 06/21/19 10:55 06/22/19 09:33 Catapres PO 0.1 mg Q4H PRN Administration Hypertension Enoxaparin Sodium 40 mg 06/21/19 21:00 06/23/19 21:10 Lovenox SC 40 mg 2100 CHUN Administration Haloperidol Lactate 5 mg 06/20/19 14:16 06/24/19 01:51 Haldol SLOW IVP 5 mg Q4H PRN Administration Agitation Levofloxacin 750 mg/ Device 150 mls @ 100 mls/hr 06/20/19 15:00 06/23/19 14: 13 IVPB 150 mls Q24HR CHUN Administration Ceftriaxone Sodium 2 gm/ 100 mls @ 0 mls/hr 06/20/19 18:00 06/24/19 05:47 Sodium Chloride IVPB 100 mls 0600,1800 CHUN Administration Nicardipine HCl 25 mg/ Sodium 250 mls @ 0 mls/hr 06/21/19 10:30 06/23/19 07: 08 Chloride IVPB 250 mls INF CHUN Administration Protocol Titrate Vancomycin HCl 1.5 gm/ Device 300 mls @ 200 mls/hr 06/22/19 16:00 06/24/19 04 :01 IVPB 300 mls 0400,1600 CHUN Administration Dexmedetomidine HCl 400 mcg/ 100 mls @ 0 mls/hr 06/23/19 19:15 06/24/19 01:40 Sodium Chloride IVPB 100 mls INF CHUN Administration Protocol Titrate Potassium Chloride 40 meq/ 270 mls @ 135 mls/hr 06/24/19 06:25 06/24/19 07:21 Sodium Chloride IVPB 270 mls ASDIR PRN Administration FOR SERUM K+ 2.5 - 3.5 Levothyroxine Sodium 125 mcg 06/22/19 06:00 06/24/19 05:47 Synthroid PO 125 mcg 0600 CHUN Administration Methylprednisolone Sodium Succinate 40 mg 06/20/19 18:00 06/24/19 05:47 Solu-Medrol IVP 40 mg Q6HR CHUN Administration Pantoprazole Sodium 40 mg 06/22/19 21:00 06/23/19 21:10 Protonix IVP 40 mg 2100 CHUN Administration Propofol 1,000 mg 06/20/19 15:25 06/24/19 04:43 Diprivan IV 07/20/19 15:25 1,000 mg INF PRN Administration TO ACHIEVE GOAL RASS Protocol Risperidone 0.25 mg 06/21/19 21:00 06/23/19 21:10 Risperidone PO 0.25 mg BID CHUN Administration - Exam Eye: PERRL Neck: no JVD Heart: RRR, no murmur Respiratory: CTAB Gastrointestinal: soft, normal bowel sounds Extremities: 1+ LE edema Hosp A/P (1) Encephalopathy acute Code(s): G93.40 - ENCEPHALOPATHY, UNSPECIFIED Status: Acute (2) Acute respiratory failure with hypoxia Code(s): J96.01 - ACUTE RESPIRATORY FAILURE WITH HYPOXIA Status: Acute (3) Hypertensive urgency Code(s): I16.0 - HYPERTENSIVE URGENCY Status: Acute (4) Meningitis Code(s): G03.9 - MENINGITIS, UNSPECIFIED Status: Acute (5) Hyperlipidemia Code(s): E78.5 - HYPERLIPIDEMIA, UNSPECIFIED Status: Chronic Qualifiers: Hyperlipidemia type: unspecified Qualified Code(s): E78.5 - Hyperlipidemia , unspecified (6) Morbid obesity with BMI of 50.0-59.9, adult Code(s): E66.01 - MORBID (SEVERE) OBESITY DUE TO EXCESS CALORIES; Z68.43 - BODY MASS INDEX (BMI) 50.0-59.9, ADULT Status: Chronic (7) Obstructive sleep apnea Code(s): G47.33 - OBSTRUCTIVE SLEEP APNEA (ADULT) (PEDIATRIC) Status: Chronic - Plan cadene iv for BP control LP for cells, C&S pending- unfortunatly so far unable to obtain vent 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
[2019-06-24] MEDS: risperiDONE 0.25 MG TAB PO SCH ×2 (09:09→20:02)
[2019-06-24] MEDS: Amlodipine 10 MG TAB PO SCH (09:09)
[2019-06-24] MEDS ORDERED: Bacteriostatic Water 30 ML VIAL FS PRN (13:24)
[2019-06-24 13:25] LABS: Potassium 3.9 mmol/L (3.5-5.1)
[2019-06-24] MEDS: Metoclopramide HCl 10 MG/2 ML VIAL IVP SCH (17:16)
[2019-06-24] MEDS: Enoxaparin Sodium 40 MG/0.4 ML SYRINGE SC SCH (20:02)
[2019-06-24] MEDS: Pantoprazole 40 MG VIAL IVP SCH (20:03)
[2019-06-25] MEDS: Metoclopramide HCl 10 MG/2 ML VIAL IVP SCH ×4 (00:11→17:30)
[2019-06-25] MEDS: Propofol 1,000 MG/100 ML VIAL IV PRN ×3 (00:13→08:59)
[2019-06-25] MEDS: methylPREDNISolone Sod Succ 40 MG VIAL IVP SCH ×2 (03:05→08:48)
[2019-06-25] MEDS: Vancomycin 1.5 GRAM/300 ML BAG 1.5 GM in Premix Bag 1 BAG IVPB SCH (03:05)
[2019-06-25 04:15] LABS: #Lymphocytes 0.7 thou/uL (1.20-3.40); #Monocytes 0.4 thou/uL (0.11-0.59); #Neutrophils 10.2 thou/uL (1.40-6.50); %Eosinophils 0.1 % (0.0-10.0); %Monocytes 3.2 % (0.0-10.0); %Neutrophils 90.7 % (42.0-75.0); Hemoglobin 11.1 g/dL (12.0-16.0); Mean Corpuscular HGB CONC 31.9 g/dL (32.0-36.0); Mean Corpuscular Hemoglobin 27.8 pg (27.0-31.0); Mean Platelet Volume 9.2 fL (7.4-10.4); Platelet Count 156 thou/uL (130-400); RBC Distribution Width 21.5 % (11.5-14.5); White Blood Cell (WBC) Count 11.2 thou/uL (4.8-10.8)
[2019-06-25 04:24] LABS: Anion Gap 14 mmol/L (10-20); BUN (Urea Nitrogen) 17 mg/dL (7.0-18.7); Calc. Creatinine Clearance 173 mL/min (70-130); Calcium 8.7 mg/dL (7.8-10.44); Carbon Dioxide 24 mmol/L (22-29); Chloride 109 mmol/L (98-107); Estimated GFR-MDRD 70; Glucose 132 mg/dL (70-105); Potassium 3.2 mmol/L (3.5-5.1); Sodium 144 mmol/L (136-145)
[2019-06-25] MEDS: cefTRIAXone\\ROCEPHIN 2 GM in Sodium Chloride 0.9% 100 ML IVPB SCH (05:05)
[2019-06-25] MEDS: Levothyroxine Sodium 125 MCG TAB PO SCH (05:06)
[2019-06-25] MEDS: Potassium Chloride 40 MEQ in Sodium Chloride 0.9% 250 ML 250 ML IVPB PRN (05:14)
--- NOTE | 2019-06-25 07:50 | PRG ---
DATE OF SERVICE: 06/24/2019 SUBJECTIVE: Lucia Turcios did not pass a leak test this morning. She has been started on IV Medrol. I suspect the leak could easily be just because of her obesity, but did not want to chance extubating her. OBJECTIVE: VITAL SIGNS: She is afebrile, respiratory rate 12, blood pressure 120/87. LUNGS: Clear. HEART: Regular rhythm. ABDOMEN: Soft. EXTREMITIES: Without asymmetry. LABORATORY DATA: White count 9.7, hemoglobin 11.3, and platelets 153. Electrolytes are unremarkable. Potassium this morning was 2.8, it is 3.9 this afternoon. IMPRESSION: Psychotic behavior apparently in the emergency room leading to intubation. Apparently, she has no history of drug use. This may have been a psychotic break or schizophrenic break. could have psychotic depression. In any event, we will go another day with steroids and then consider weaning and extubation tomorrow morning. Critical care time is 35 minutes. Job ID: [id number] MTDD
[2019-06-25 07:58] LABS: Actual Bicarbonate (HCO3a) 26.4 mEq/L (22-28); Base Excess (BEa) 2.7 mEq/L (-2.0 to +3.0); CO2 Tension 37.2 mmHg (35.0-45.0); Calcium, Ionized 1.18 mmol/L (1.12-1.30); Carboxyhemoglobin (COHb) 0.7 gm% (0.0-3.0); Hemoglobin (Hb) 11.2 g/dL (12.0-16.0); O2 Tension (PaO2) 69.4 mmHg (80.0-100.0); Potassium - ABG Lab 3.49 mmol/L (3.70-5.30); pH, Arterial 7.47 (7.35-7.45)
[2019-06-25 08:09] LABS: Puncture Site LR
[2019-06-25] MEDS: Amlodipine 10 MG TAB PO SCH (08:47)
[2019-06-25] MEDS: risperiDONE 0.25 MG TAB PO SCH (08:47)
--- NOTE | 2019-06-25 08:52 | PDOC.HOSPP ---
- Subjective Encounter Date: 06/25/19 Encounter Time: 08:45 Subjective: intubated, sedated - Objective Vital Signs & Weight: Vital Signs (12 hours) Temp Pulse Resp BP 06/25/19 07:46 54 L 119/89 06/25/19 07:00 97.5 F L 06/25/19 06:00 12 06/25/19 04:00 97.5 F L 12 06/25/19 03:06 55 L 121/86 06/25/19 02:00 12 06/25/19 00:00 12 06/24/19 22:45 56 L 120/88 06/24/19 22:00 12 Weight Admit Weight 358 lb 11.073 oz Weight 358 lb 11.073 oz Most Recent Monitor Data Heart Rate from ECG 55 NIBP 122/93 NIBP BP-Mean 102 Respiration from ECG 12 SpO2 99 I&O: 06/24/19 06/25/19 06/26/19 06:59 06:59 06:59 Intake Total 2222 2075.8 Output Total 2895 1000 45 Balance -673 1075.8 -45 Result Diagrams: 06/25/19 03:38 06/25/19 03:38 Additional Labs: Accuchecks 06/24/19 22:18 POC Glucose 114 H Hospitalist ROS - Medication Medications: Active Medications Generic Name Dose Route Start Last Admin Trade Name Freq PRN Reason Stop Dose Admin Albuterol/Ipratropium 3 ml 06/21/19 10:30 06/25/19 07:46 Duoneb NEB 3 ml [id number] CHUN Administration Amlodipine Besylate 10 mg 06/22/19 09:00 06/24/19 09:09 Norvasc PO 10 mg DAILY CHUN Administration Clonidine 0.1 mg 06/21/19 10:55 06/22/19 09:33 Catapres PO 0.1 mg Q4H PRN Administration Hypertension Enoxaparin Sodium 40 mg 06/21/19 21:00 06/24/19 20:02 Lovenox SC 40 mg 2100 CHUN Administration Haloperidol Lactate 5 mg 06/20/19 14:16 06/24/19 01:51 Haldol SLOW IVP 5 mg Q4H PRN Administration Agitation Levofloxacin 750 mg/ Device 150 mls @ 100 mls/hr 06/20/19 15:00 06/24/19 15: 37 IVPB 150 mls Q24HR CHUN Administration Ceftriaxone Sodium 2 gm/ 100 mls @ 0 mls/hr 06/20/19 18:00 06/25/19 05:05 Sodium Chloride IVPB 100 mls 0600,1800 CHUN Administration Nicardipine HCl 25 mg/ Sodium 250 mls @ 0 mls/hr 06/21/19 10:30 06/23/19 07: 08 Chloride IVPB 250 mls INF CHUN Administration Protocol Titrate Vancomycin HCl 1.5 gm/ Device 300 mls @ 200 mls/hr 06/22/19 16:00 06/25/19 03 :05 IVPB 300 mls 0400,1600 CHUN Administration Dexmedetomidine HCl 400 mcg/ 100 mls @ 0 mls/hr 06/23/19 19:15 06/24/19 20:08 Sodium Chloride IVPB 100 mls INF CHUN Administration Protocol Titrate Potassium Chloride 40 meq/ 270 mls @ 135 mls/hr 06/24/19 06:25 06/25/19 05:14 Sodium Chloride IVPB 270 mls ASDIR PRN Administration FOR SERUM K+ 2.5 - 3.5 Levothyroxine Sodium 125 mcg 06/22/19 06:00 06/25/19 05:06 Synthroid PO 125 mcg 0600 CHUN Administration Methylprednisolone Sodium Succinate 40 mg 06/24/19 14:00 06/25/19 03:05 Solu-Medrol IVP 40 mg 0200,0800,1400,2000 CHUN Administration Metoclopramide HCl 5 mg 06/24/19 18:00 06/25/19 05:06 Reglan IVP 5 mg Q6HR CHUN Administration Pantoprazole Sodium 40 mg 06/22/19 21:00 06/24/19 20:03 Protonix IVP 40 mg 2100 CHUN Administration Propofol 1,000 mg 06/20/19 15:25 06/25/19 05:10 Diprivan IV 07/20/19 15:25 1,000 mg INF PRN Administration TO ACHIEVE GOAL RASS Protocol Risperidone 0.25 mg 06/21/19 21:00 06/24/19 20:02 Risperidone PO 0.25 mg BID CHUN Administration Sterile Water 1 ml 06/24/19 13:24 06/24/19 20:03 Bacteriostatic Water FS 1 ml PRN PRN Administration RECONSTITUTION - Exam Neck: no JVD Heart: RRR, no murmur Respiratory: CTAB Gastrointestinal: soft, normal bowel sounds Extremities: 1+ LE edema Hosp A/P (1) Encephalopathy acute Code(s): G93.40 - ENCEPHALOPATHY, UNSPECIFIED Status: Acute (2) Acute respiratory failure with hypoxia Code(s): J96.01 - ACUTE RESPIRATORY FAILURE WITH HYPOXIA Status: Acute (3) Hypertensive urgency Code(s): I16.0 - HYPERTENSIVE URGENCY Status: Acute (4) Meningitis Code(s): G03.9 - MENINGITIS, UNSPECIFIED Status: Acute (5) Hyperlipidemia Code(s): E78.5 - HYPERLIPIDEMIA, UNSPECIFIED Status: Chronic Qualifiers: Hyperlipidemia type: unspecified Qualified Code(s): E78.5 - Hyperlipidemia , unspecified (6) Morbid obesity with BMI of 50.0-59.9, adult Code(s): E66.01 - MORBID (SEVERE) OBESITY DUE TO EXCESS CALORIES; Z68.43 - BODY MASS INDEX (BMI) 50.0-59.9, ADULT Status: Chronic (7) Obstructive sleep apnea Code(s): G47.33 - OBSTRUCTIVE SLEEP APNEA (ADULT) (PEDIATRIC) Status: Chronic - Plan cadene iv for BP control LP for cells, C&S pending- unfortunatly so far unable to obtain vent 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
[2019-06-25] MEDS ORDERED: Haloperidol Lactate 5 MG/ML VIAL ONE ×2 (10:35→10:40)
[2019-06-25] MEDS ORDERED: Haloperidol Lactate 5 MG/ML VIAL SLOW IVP PRN (12:06)
--- NOTE | 2019-06-25 12:55 | PRG ---
DATE OF SERVICE: 06/25/2019 Lucia Turcios was extubated this morning after she passed spontaneous breathing trial. She also passed a leak test. Once her sedation was discontinued and she was awake, she started screaming, kicking, biting, and trying to punch everybody in the room, claiming that we were killing her. She is clearly psychotic at this point. Her cultures have been reviewed. They were negative. Her lungs are clear on chest x-ray 2 days ago. I do not feel she is septic. I do not feel that she has meningitis or encephalitis. It is more likely that this is either psychotic depression or schizophrenia. In any event, we will continue with p.r.n. Haldol, probably should place her on some routine Haldol intramuscularly and use intravenous Haldol when she gets violent. 20 mg of Haldol earlier plus Precedex added led to more cooperative behavior. I suspect she also has obesity hypoventilation syndrome. I have recommended a goal O2 saturation of 88% to 92%. Critical care time, 30 minutes. Job ID: [id number]
[2019-06-25] MEDS: Lorazepam 2 MG/ML VIAL SLOW IVP SCH ×3 (12:56→20:45)
[2019-06-25] MEDS: Haloperidol Lactate 5 MG/ML VIAL IM SCH ×3 (12:57→20:44)
[2019-06-25] MEDS: Pantoprazole 40 MG VIAL IVP SCH (20:45)
[2019-06-25] MEDS: Sodium Chloride 0.9% (PF) 10 ML VIAL FS PRN (20:45)
[2019-06-25] MEDS: Enoxaparin Sodium 40 MG/0.4 ML SYRINGE SC SCH (20:45)
[2019-06-26] MEDS: Metoclopramide HCl 10 MG/2 ML VIAL IVP SCH ×4 (00:19→18:02)
[2019-06-26] MEDS: Lorazepam 2 MG/ML VIAL SLOW IVP SCH ×6 (00:19→20:37)
[2019-06-26] MEDS: Haloperidol Lactate 5 MG/ML VIAL IM SCH ×7 (00:20→22:19)
[2019-06-26 04:07] LABS: Anion Gap 12 mmol/L (10-20); BUN (Urea Nitrogen) 21 mg/dL (7.0-18.7); Calc. Creatinine Clearance 167 mL/min (70-130); Calcium 8.4 mg/dL (7.8-10.44); Carbon Dioxide 24 mmol/L (22-29); Chloride 110 mmol/L (98-107); Estimated GFR-MDRD 67; Glucose 94 mg/dL (70-105); Potassium 3.6 mmol/L (3.5-5.1); Sodium 142 mmol/L (136-145)
[2019-06-26] MEDS: Levothyroxine Sodium 125 MCG TAB PO SCH (06:07)
[2019-06-26 06:25] LABS: Anisocytosis SLIGHT = 6-15 cells (100X) (0-5/hpf); Band 4 % (5-11); Eosinophils 1 % (0-10); Lymphocytes 18 % (21-51); MDiff Complete? YES; Mean Corpuscular Hemoglobin 27.7 pg (27.0-31.0); Mean Corpuscular Volume 86.5 fL (78.0-98.0); Mean Platelet Volume 11.4 fL (7.4-10.4); Monocytes 3 % (0-10); Neutrophil 74 % (42-75); Platelet Count 147 thou/uL (130-400); Platelet Morphology Comment Appears Adequate; Red Blood Cell (RBC) Count 3.98 mill/uL (4.20-5.40); Target Cells SLIGHT = 2-5 cells (100X) (0-1/hpf); White Blood Cell (WBC) Count 12.8 thou/uL (4.8-10.8)
[2019-06-26] MEDS: Amlodipine 10 MG TAB PO SCH (09:44)
--- NOTE | 2019-06-26 11:44 | PDOC.HOSPP ---
- Subjective Encounter Date: 06/26/19 Encounter Time: 09:15 Subjective: awake, responds to verbal questions wants to drink and eat is sob and cant finish a sentences without taking atleast 2-3 breaths in between - Objective Vital Signs & Weight: Vital Signs (12 hours) Temp Pulse Resp BP 06/26/19 11:04 71 26 H 06/26/19 09:44 66 134/91 H 06/26/19 07:00 97.4 F L 06/26/19 04:00 97.4 F L 06/26/19 00:00 97.2 F L Weight Admit Weight 358 lb 11.073 oz Weight 358 lb 11.073 oz Most Recent Monitor Data Heart Rate from ECG 70 NIBP 130/88 NIBP BP-Mean 102 Respiration from ECG 29 SpO2 95 I&O: 06/25/19 06/26/19 06/27/19 06:59 06:59 06:59 Intake Total 2075.8 2269 430 Output Total 1000 695 95 Balance 1075.8 1574 335 Result Diagrams: 06/26/19 05:40 06/26/19 03:37 Hospitalist ROS - Medication Medications: Active Medications Generic Name Dose Route Start Last Admin Trade Name Freq PRN Reason Stop Dose Admin Albuterol/Ipratropium 3 ml 06/21/19 10:30 06/26/19 11:04 Duoneb NEB 3 ml [id number] CHUN Administration Amlodipine Besylate 10 mg 06/22/19 09:00 06/26/19 09:44 Norvasc PO 10 mg DAILY CHUN Administration Clonidine 0.1 mg 06/21/19 10:55 06/22/19 09:33 Catapres PO 0.1 mg Q4H PRN Administration Hypertension Enoxaparin Sodium 40 mg 06/21/19 21:00 06/25/19 20:45 Lovenox SC 40 mg 2100 CHUN Administration Haloperidol Lactate 10 mg 06/26/19 06:00 06/26/19 10:56 Haldol IM 10 mg Q4H CHUN Administration Nicardipine HCl 25 mg/ Sodium 250 mls @ 0 mls/hr 06/21/19 10:30 06/23/19 07: 08 Chloride IVPB 250 mls INF CHUN Administration Protocol Titrate Dexmedetomidine HCl 400 mcg/ 100 mls @ 0 mls/hr 06/23/19 19:15 06/26/19 04:24 Sodium Chloride IVPB 100 mls INF CHUN Administration Protocol Titrate Potassium Chloride 40 meq/ 270 mls @ 135 mls/hr 06/24/19 06:25 06/25/19 05:14 Sodium Chloride IVPB 270 mls ASDIR PRN Administration FOR SERUM K+ 2.5 - 3.5 Levothyroxine Sodium 125 mcg 06/22/19 06:00 06/26/19 06:07 Synthroid PO 125 mcg 0600 CHUN Administration Lorazepam 1 mg 06/25/19 12:15 06/26/19 09:43 Ativan SLOW IVP 1 mg Q4H CHUN Administration Metoclopramide HCl 5 mg 06/24/19 18:00 06/26/19 11:00 Reglan IVP 5 mg Q6HR CHUN Administration Pantoprazole Sodium 40 mg 06/22/19 21:00 06/25/19 20:45 Protonix IVP 40 mg 2100 CHUN Administration Sodium Chloride 10 ml 06/22/19 14:25 06/25/19 20:45 Normal Saline Pf FS 10 ml PRN PRN Administration RECONSTITUTION Sterile Water 1 ml 06/24/19 13:24 06/24/19 20:03 Bacteriostatic Water FS 1 ml PRN PRN Administration RECONSTITUTION - Exam General Appearance: awake alert, ill appearing Eye: PERRL, anicteric sclera ENT: no oropharyngeal lesions, dry oral mucosa Neck: supple, no JVD Heart: RRR, no murmur Respiratory: no rales, rhonchi, wheezes Gastrointestinal: soft, non-tender, non-distended, normal bowel sounds Extremities: no cyanosis, 1+ LE edema Neurological: cranial nerve grossly intact, no focal deficits Hosp A/P (1) Acute respiratory failure with hypoxia Code(s): J96.01 - ACUTE RESPIRATORY FAILURE WITH HYPOXIA Status: Acute (2) Encephalopathy acute Code(s): G93.40 - ENCEPHALOPATHY, UNSPECIFIED Status: Acute (3) Hypertensive urgency Code(s): I16.0 - HYPERTENSIVE URGENCY Status: Resolved (4) Asthma Code(s): J45.909 - UNSPECIFIED ASTHMA, UNCOMPLICATED Status: Chronic Qualifiers: Asthma severity: severe Asthma persistence: persistent Asthma complication type: with acute exacerbation Qualified Code(s): J45.51 - Severe persistent asthma with (acute) exacerbation (5) Hypertension Code(s): I10 - ESSENTIAL (PRIMARY) HYPERTENSION Status: Chronic Qualifiers: Hypertension type: essential hypertension Qualified Code(s): I10 - Essential (primary) hypertension (6) Hypothyroidism Code(s): E03.9 - HYPOTHYROIDISM, UNSPECIFIED Status: Chronic Qualifiers: Hypothyroidism type: unspecified Qualified Code(s): E03.9 - Hypothyroidism , unspecified (7) Hyperlipidemia Code(s): E78.5 - HYPERLIPIDEMIA, UNSPECIFIED Status: Chronic Qualifiers: Hyperlipidemia type: unspecified Qualified Code(s): E78.5 - Hyperlipidemia , unspecified (8) Morbid obesity with BMI of 50.0-59.9, adult Code(s): E66.01 - MORBID (SEVERE) OBESITY DUE TO EXCESS CALORIES; Z68.43 - BODY MASS INDEX (BMI) 50.0-59.9, ADULT Status: Chronic (9) Obstructive sleep apnea Code(s): G47.33 - OBSTRUCTIVE SLEEP APNEA (ADULT) (PEDIATRIC) Status: Chronic (10) Obesity hypoventilation syndrome Code(s): E66.2 - MORBID (SEVERE) OBESITY WITH ALVEOLAR HYPOVENTILATION Status : Suspected - Plan got extubated on 06/25/2019 has encephalopathy with psychosis, on haldol 10mg im q4h is not fully oriented yet, has bursts of aggressive behaviour in between continue norvasc, nebs, synthroid, reglan finished full course of levaquin, ceftriaxone and steroids. PT to mobilize as tolerated encourage po intake prefer family at bedside to help her get oriented and for emotional help to recover quickly is morbidly obese and is at risk for rec resp failure
[2019-06-26] MEDS: Enoxaparin Sodium 40 MG/0.4 ML SYRINGE SC SCH (20:36)
[2019-06-26] MEDS: Sodium Chloride 0.9% (PF) 10 ML VIAL FS PRN (20:37)
[2019-06-26] MEDS: Pantoprazole 40 MG VIAL IVP SCH (20:37)
[2019-06-27] MEDS: Metoclopramide HCl 10 MG/2 ML VIAL IVP SCH ×3 (00:04→12:51)
[2019-06-27] MEDS: Lorazepam 2 MG/ML VIAL SLOW IVP SCH ×4 (00:04→12:51)
[2019-06-27] MEDS: Haloperidol Lactate 5 MG/ML VIAL IM SCH ×3 (02:00→12:51)
[2019-06-27 05:17] LABS: Anion Gap 13 mmol/L (10-20); BUN (Urea Nitrogen) 18 mg/dL (7.0-18.7); Calc. Creatinine Clearance 203 mL/min (70-130); Calcium 8.2 mg/dL (7.8-10.44); Carbon Dioxide 24 mmol/L (22-29); Chloride 110 mmol/L (98-107); Estimated GFR-MDRD 84; Glucose 77 mg/dL (70-105); Potassium 3.7 mmol/L (3.5-5.1); Sodium 143 mmol/L (136-145)
[2019-06-27] MEDS: Levothyroxine Sodium 125 MCG TAB PO SCH (06:08)
[2019-06-27 06:47] LABS: Hemoglobin 11.2 g/dL (12.0-16.0); Mean Corpuscular HGB CONC 32.2 g/dL (32.0-36.0); Mean Corpuscular Hemoglobin 27.7 pg (27.0-31.0); Mean Corpuscular Volume 85.8 fL (78.0-98.0); Platelet Count 124 thou/uL (130-400); RBC Distribution Width 20.9 % (11.5-14.5); Red Blood Cell (RBC) Count 4.05 mill/uL (4.20-5.40); White Blood Cell (WBC) Count 8.5 thou/uL (4.8-10.8)
[2019-06-27 06:48] LABS: Band 1 % (5-11); Eosinophils 2 % (0-10); Lymphocytes 38 % (21-51); MDiff Complete? YES; Monocytes 3 % (0-10); Neutrophil 56 % (42-75); Nucleated RBC 2 % (0); Target Cells SLIGHT = 2-5 cells (100X) (0-1/hpf)
[2019-06-27 08:01] VITALS: TEMP 97.8
[2019-06-27] MEDS: Amlodipine 10 MG TAB PO SCH (08:56)
[2019-06-27 09:30] VITALS: BP 188/87
[2019-06-27] MEDS: cloNIDine 0.1 MG TAB PO PRN (09:30)
--- NOTE | 2019-06-27 11:31 | PDOC.HOSPP ---
- Subjective Encounter Date: 06/27/19 Encounter Time: 09:15 Subjective: awake, responds to verbal stimuli - Objective Vital Signs & Weight: Vital Signs (12 hours) Temp Pulse Resp BP Pulse Ox 06/27/19 09:30 188/87 H 06/27/19 08:56 71 153/100 H 06/27/19 07:47 71 17 100 06/27/19 07:00 97.8 F 06/27/19 04:00 97.1 F L 06/27/19 02:51 72 18 100 06/27/19 00:41 97 06/27/19 00:00 97.5 F L Weight Admit Weight 358 lb 11.073 oz Weight 358 lb 11.073 oz Most Recent Monitor Data Heart Rate from ECG 82 NIBP 182/98 NIBP BP-Mean 126 Respiration from ECG 21 SpO2 98 I&O: 06/26/19 06/27/19 06/28/19 06:59 06:59 06:59 Intake Total 2269 2080.2 250 Output Total 695 915 665 Balance 1574 1165.2 -415 Result Diagrams: 06/27/19 06:15 06/27/19 03:50 Hospitalist ROS - Medication Medications: Active Medications Generic Name Dose Route Start Last Admin Trade Name Freq PRN Reason Stop Dose Admin Albuterol/Ipratropium 3 ml 06/21/19 10:30 06/27/19 10:50 Duoneb NEB Not Given [id number] CHUN Amlodipine Besylate 10 mg 06/22/19 09:00 06/27/19 08:56 Norvasc PO 10 mg DAILY CHUN Administration Clonidine 0.1 mg 06/21/19 10:55 06/27/19 09:30 Catapres PO 0.1 mg Q4H PRN Administration Hypertension Enoxaparin Sodium 40 mg 06/21/19 21:00 06/26/19 20:36 Lovenox SC 40 mg 2100 CUHN Administration Haloperidol Lactate 10 mg 06/26/19 06:00 06/27/19 06:08 Haldol IM 10 mg Q4H CHUN Administration Nicardipine HCl 25 mg/ Sodium 250 mls @ 0 mls/hr 06/21/19 10:30 06/23/19 07: 08 Chloride IVPB 250 mls INF CHUN Administration Protocol Titrate Dexmedetomidine HCl 400 mcg/ 100 mls @ 0 mls/hr 06/23/19 19:15 06/27/19 04:15 Sodium Chloride IVPB 100 mls INF CHUN Administration Protocol Titrate Potassium Chloride 40 meq/ 270 mls @ 135 mls/hr 06/24/19 06:25 06/25/19 05:14 Sodium Chloride IVPB 270 mls ASDIR PRN Administration FOR SERUM K+ 2.5 - 3.5 Levothyroxine Sodium 125 mcg 06/22/19 06:00 06/27/19 06:08 Synthroid PO 125 mcg 0600 CHUN Administration Lorazepam 1 mg 06/25/19 12:15 06/27/19 08:57 Ativan SLOW IVP 1 mg Q4H CHUN Administration Metoclopramide HCl 5 mg 06/24/19 18:00 06/27/19 06:08 Reglan IVP 5 mg Q6HR CHUN Administration Pantoprazole Sodium 40 mg 06/22/19 21:00 06/26/19 20:37 Protonix IVP 40 mg 2100 CHUN Administration Sodium Chloride 10 ml 06/22/19 14:25 06/26/19 20:37 Normal Saline Pf FS 10 ml PRN PRN Administration RECONSTITUTION Sterile Water 1 ml 06/24/19 13:24 06/24/19 20:03 Bacteriostatic Water FS 1 ml PRN PRN Administration RECONSTITUTION - Exam General Appearance: ill appearing Eye: PERRL, anicteric sclera ENT: no oropharyngeal lesions, dry oral mucosa Neck: supple, no JVD Heart: no murmur, no gallops Respiratory: no wheezes, no rales, rhonchi Gastrointestinal: soft, non-tender, non-distended, normal bowel sounds Extremities: no cyanosis, 1+ LE edema Neurological: cranial nerve grossly intact, no focal deficits Hosp A/P (1) Acute respiratory failure with hypoxia Code(s): J96.01 - ACUTE RESPIRATORY FAILURE WITH HYPOXIA Status: Acute (2) Encephalopathy acute Code(s): G93.40 - ENCEPHALOPATHY, UNSPECIFIED Status: Acute (3) Hypertensive urgency Code(s): I16.0 - HYPERTENSIVE URGENCY Status: Resolved (4) Asthma Code(s): J45.909 - UNSPECIFIED ASTHMA, UNCOMPLICATED Status: Chronic Qualifiers: Asthma severity: severe Asthma persistence: persistent Asthma complication type: with acute exacerbation Qualified Code(s): J45.51 - Severe persistent asthma with (acute) exacerbation (5) Hypertension Code(s): I10 - ESSENTIAL (PRIMARY) HYPERTENSION Status: Chronic Qualifiers: Hypertension type: essential hypertension Qualified Code(s): I10 - Essential (primary) hypertension (6) Hypothyroidism Code(s): E03.9 - HYPOTHYROIDISM, UNSPECIFIED Status: Chronic Qualifiers: Hypothyroidism type: unspecified Qualified Code(s): E03.9 - Hypothyroidism , unspecified (7) Hyperlipidemia Code(s): E78.5 - HYPERLIPIDEMIA, UNSPECIFIED Status: Chronic Qualifiers: Hyperlipidemia type: unspecified Qualified Code(s): E78.5 - Hyperlipidemia , unspecified (8) Morbid obesity with BMI of 50.0-59.9, adult Code(s): E66.01 - MORBID (SEVERE) OBESITY DUE TO EXCESS CALORIES; Z68.43 - BODY MASS INDEX (BMI) 50.0-59.9, ADULT Status: Chronic (9) Obstructive sleep apnea Code(s): G47.33 - OBSTRUCTIVE SLEEP APNEA (ADULT) (PEDIATRIC) Status: Chronic (10) Obesity hypoventilation syndrome Code(s): E66.2 - MORBID (SEVERE) OBESITY WITH ALVEOLAR HYPOVENTILATION Status : Suspected - Plan got extubated on 06/25/2019 has encephalopathy with psychosis, on haldol 10mg im q4h, ativan q4h as well. is not fully oriented yet, has bursts of aggressive behaviour in between continue norvasc, nebs, synthroid, reglan finished full course of levaquin, ceftriaxone and steroids. PT to mobilize, oob to chair and amb as tolerated. encourage po intake prefer family at bedside to help her get oriented and for emotional help to recover quickly is morbidly obese and is at risk for rec resp failure will need placement
--- NOTE | 2019-06-27 11:53 | EKG ---
Test Reason : Blood Pressure : / mmHG Vent. Rate : 073 BPM Atrial Rate : 073 BPM P-R Int : 158 ms QRS Dur : 100 ms QT Int : 394 ms P-R-T Axes : 061 003 132 degrees QTc Int : 434 ms Normal sinus rhythm Possible Left atrial enlargement Incomplete right bundle branch block Nonspecific ST and T wave abnormality Abnormal ECG Confirmed by KAMERON NYE, CASEY ([id number]), senior editor SARAH WHITT ([id number]) on 06/27/2019 11:53:11 AM Referred By: Confirmed By:CASEY MELO MD
--- NOTE | 2019-06-27 15:20 | PRG ---
DATE OF SERVICE: 06/27/2019 Ms. Turcios is still paranoid. She will not let people near her without swinging out them. Hemodynamics have been stable. Lungs, heart, and abdomen are unchanged, although I could not do any type of thorough exam on her because of her combative behavior. [facility] was consulted. They did not feel she had a psychiatric illness. She wanted to sign against medical advice. We will sign off. Job ID: [id number]
--- NOTE | 2019-06-27 18:23 | DIS ---
DATE OF ADMISSION: 06/20/2019 DATE OF DISCHARGE: 06/27/2019 DISCHARGE DISPOSITION: The patient signed out against medical advice. PRIMARY DISCHARGE DIAGNOSES: Acute respiratory failure with hypoxia, acute metabolic encephalopathy, hypertensive urgency, history of asthma with exacerbation, morbid obesity, possible obesity hypoventilation and obstructive sleep apnea which needs outpatient sleep study, hypertension, hypothyroidism, dyslipidemia, acute psychosis during her hospitalization. PROCEDURES DONE DURING HOSPITALIZATION: The patient initially was intubated on arrival. She got extubated on the . Initial chest x-ray done showed endotracheal tube in good position. CT brain without contrast done showed no acute intracranial process. Blood cultures x2, no growth. Urine culture, no growth. Discharge white count of 8.5, H and H 11 and 34, platelet count 124, MCV 85. Blood gas showed a pH of 7.44, pCO2 45, pO2 of 67 on the day of admission. Discharge BUN and creatinine are 18 and 0.8. test was negative. Urinalysis showed no evidence of infection. Urine drug screen was negative. Plasma alcohol less than 10. Synthetic cannabinoid metabolites were negative. DISCHARGE MEDICATION: Please note the patient was not prescribed any medications on discharge as she went against medical advice. DISCHARGE PLAN: The patient is advised to follow up with her primary care physician in [address] Thalia Nugent. BRIEF COURSE DURING HOSPITALIZATION: The patient initially came to ER with complaints of redness over right leg. The patient was discharged from the ER, but later came back with hallucinations. Subsequently, she became very agitated and had to be intubated. The patient has had these confusion and hallucinations symptoms and seeing people who are not there and hearing voices for about a week. This was revealed to ER physician, Dr. Sotelo by family members on arrival. She was seen in the ER for asthma previously and again, the patient had come to ER on the with complaints of shortness of breath and cough. She had difficulty obtaining albuterol inhaler due to insurance issues then. The patient was prescribed albuterol and Medrol Dosepak with Z-Meño on the when she came to ER. The patient became very belligerent in the ER and was very aggressive towards staff including ER physician and had to be intubated for airway due to psychotropic medications. She was successfully extubated on the . The patient continued to be aggressive towards staff all through her stay. She is morbidly obese with BMI of 56 and weighing nearly 358 pounds. The patient apparently ambulated a little around her bed this afternoon and was wanting to go home come what may. [facility] was consulted for help with placement to inpatient psychiatric facility. She was deconditioned and was a high risk for readmission and the plans were to send her to either swing bed, SNF, rehab, or inpatient psychiatric facility if she qualified. The patient was oriented on the day of discharge and was cleared by [facility]. Following this, the patient signed out against medical advice and called her family and the patient did not want to stick around. She was counseled multiple times not to go due to risk of worsening morbidity and mortality. She is clearly aware of this and she did not even listen to her family numbers. Finally, the patient was escorted out to her car and she apparently got out of her wheelchair and got into her car safely. Please note, I have seen and examined the patient on the day of discharge. Job ID: [id number]
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
== END 2019-06-27 12:45 | disposition left against medical advice (07) | DRG 207 ==
LOC: ERS 23:37 → CCU 06-20 13:41
PROVIDERS: ADMIT Hospitalist; ATTEND Hospitalist
PROC: 5A1955Z Respiratory Ventilation, Greater than 96 Consecutive Hours (ICD-10-PCS; principal; 2019-06-20)
PROC: 0BH17EZ Insertion of Endotracheal Airway into Trachea, Via Natural or Artificial Opening (ICD-10-PCS; 2019-06-20)
DX: J96.01 Acute respiratory failure with hypoxia (principal); G93.41 Metabolic encephalopathy; J45.901 Unspecified asthma with (acute) exacerbation; E66.2 Morbid (severe) obesity with alveolar hypoventilation; Z68.43 Body mass index [BMI] 50.0-59.9, adult; F23 Brief psychotic disorder; N17.9 Acute kidney failure, unspecified; J45.51 Severe persistent asthma with (acute) exacerbation; I16.0 Hypertensive urgency; I10 Essential (primary) hypertension; E03.9 Hypothyroidism, unspecified; F17.200 Nicotine dependence, unspecified, uncomplicated; E78.5 Hyperlipidemia, unspecified; Z79.899 Other long term (current) drug therapy; Z79.890 Hormone replacement therapy; Z79.84 Long term (current) use of oral hypoglycemic drugs; Z78.1 Physical restraint status
CPT/HCPCS: 31500; 36415; 36416; 51702; 70450; 71045; 80048; 80053; 80202; 80306; 80307; 81003; 81015; 81025; 82805; 84443; 84484; 85025; 87040; 87086; 93005; 94002; 94003; 94640; 96365; 96366; 96372; 99292; C9113; J0696; J1630; J1644; J1650; J1956; J2060; J2704; J2765; J2920; J3370; J3475; J3480; J3486; J3490; J7050; J7620